=== PATIENT | female | born 1980 | race African-American/Black ===

== ENCOUNTER 2023-11-11 11:06 | Emergency (ER) | payer OTHER ==
[~2023-11-11] VITALS: Ht 157.5 cm; Wt 63.7 kg
[2023-11-11 11:20] VITALS: BP 121/71
[2023-11-11] MEDS ORDERED: KETOROLAC TROMETHAMINE 30 MG/ML SDV IM ONE (11:35)
[2023-11-11] MEDS ORDERED: diazePAM 10 MG/2 ML VIAL IM ONE (11:40)
[2023-11-11 12:15] LABS: URINE BLOOD DIPSTICK Negative (NEGATIVE); URINE GLUCOSE - DIPSTICK Negative (NEGATIVE); URINE KETONE Negative (NEGATIVE); URINE LEUK ESTERASE Negative (NEGATIVE); URINE NITRITE - DIPSTICK Negative (Negative); URINE PH 5.5 (4.5-8.0); URINE PROTEIN - DIPSTICK 30 mg/dL (NEG-TRACE); URINE SPECIFIC GRAVITY >=1.030; URINE UROBILINOGEN - DIPSTICK 0.2 E.U./dL (0.2)
[2023-11-11 12:16] LABS: URINE COLOR Yellow
[2023-11-11 12:17] LABS: URINE SQUAMOUS EPITHELIAL CELL FEW EPI/hpf (0-FEW); URINE WBC 0-2 WBC/hpf (0-5)
[2023-11-11 12:18] LABS: URINE MUCUS FEW hpf (NONE-FEW)
[2023-11-11] MEDS ORDERED: BACLOFEN20 MG PO (12:42)
[2023-11-11] MEDS ORDERED: TAMSULOSIN0.4 MG PO (12:42)
[2023-11-11 14:46] VITALS: BP 121/71
[2023-11-11] MEDS ORDERED: MEDDOSEPAK PO (14:48)
[2023-11-11] MEDS ORDERED: ORPHENADRINE100 MG PO (14:48)
== END 2023-11-11 15:08 | DRG 392 ==
LOC: ED 11:06
PROVIDERS: Emergency Medicine
DX: R10.2 Pelvic and perineal pain (principal); M79.606 Pain in leg, unspecified; M62.838 Other muscle spasm; G35 Multiple sclerosis; W18.11XA Fall from or off toilet without subsequent striking against object, initial encounter; Y92.149 Unspecified place in prison as the place of occurrence of the external cause; T50.906A Underdosing of unspecified drugs, medicaments and biological substances, initial encounter; Z91.128 Patient's intentional underdosing of medication regimen for other reason; Z72.0 Tobacco use; Z99.3 Dependence on wheelchair